=== PATIENT | female | born 1980 | race Hispanic/Latino ===

== ENCOUNTER 2016-06-26 16:06 | Emergency (ER) | payer SELFPAY ==
[~2016-06-26] VITALS: Ht 149.9 cm; Wt 56.4 kg
[~2016-06-26 16:06] MED LIST: CIPRO500 MG PO; FIORICET PO; MOTRIN400 MG OR; NO HOME MEDS; PENICILLN VK500 MG OR; REGLAN5 MG OR; ZOFRAN ODT4 MG PO
[2016-06-26] MEDS ORDERED: FIORICET PO (17:41)
[2016-06-26 17:52] VITALS: BP 119/74
== END 2016-06-26 17:52 | disposition home or self-care (01) | DRG 103 ==
LOC: ED 16:06
DX: G43.909 Migraine, unspecified, not intractable, without status migrainosus (principal)